=== PATIENT | male | born 1945 | race Caucasian/White ===

== ENCOUNTER 2018-04-09 10:09 | Emergency (ER) | payer MEDICARE, OTHER | END 2018-04-09 11:04 | disposition home or self-care (01) | LOC: SCSER 10:09 | DX: L02.212 Cutaneous abscess of back [any part, except buttock and flank] (principal); I10 Essential (primary) hypertension; E78.1 Pure hyperglyceridemia | CPT/HCPCS: 10061 ==

== ENCOUNTER 2019-10-17 15:49 | Outpatient (CLI) | payer MEDICARE, OTHER ==
--- NOTE | 2019-10-17 16:40 | CT ---
CT chest noncontrast low-dose screening. HISTORY: Tobacco abuse. COMPARISON: 08/17/2017. FINDINGS: Scattered areas of parenchymal linear scarring are present within each lung. Minimal atelec tasis at the dependent portion of each lung base. No lobar consolidation or pneumothorax. Within the posterior lateral aspect of the left upper lobe on axial image #51 is a semisolid 0.5 cm s ubpleural nodule that was not present on the 2018 exam. No other nodules evident. Lack of contrast limits evaluation of the soft tissues. There is calcification within the coronary ar teries. Degenerative changes throughout the thoracic spine. IMPRESSION : Left upper lobe nodule 0.5 cm subpleural groundglass. Lung RADS category 3. Probably benign. Six-month follow-up low-dose CT recommended. Atherosclerosis.
== END 2019-10-17 15:50 | disposition home or self-care (01) ==
LOC: BICCT 15:49
PROVIDERS: ATTEND Family Medicine
DX: Z12.2 Encounter for screening for malignant neoplasm of respiratory organs (principal); Z87.891 Personal history of nicotine dependence; I25.10 Atherosclerotic heart disease of native coronary artery without angina pectoris; R91.1 Solitary pulmonary nodule
CPT/HCPCS: G0297

== ENCOUNTER 2020-07-11 15:28 | Outpatient (CLI) | payer MEDICARE | END 2020-07-11 15:29 | disposition home or self-care (01) | LOC: BICCT 15:28 | PROVIDERS: ATTEND Family Medicine | DX: Z12.2 Encounter for screening for malignant neoplasm of respiratory organs (principal); Z87.891 Personal history of nicotine dependence; R93.89 Abnormal findings on diagnostic imaging of other specified body structures | CPT/HCPCS: 71271 ==